=== PATIENT | female | born 1985 | race Two or more races ===

== ENCOUNTER → 2016-11-20 | Outpatient (CLI) | payer OTHER ==
--- NOTE | 2016-11-20 13:28 | REP ---
LEFT KNEE, FIVE VIEWS: HISTORY: Injury. There is no acute fracture or dislocation. The joint spaces are normal in appearance. IMPRESSION: There is no acute fracture or dislocation. Signed by Haresh Fortune MD 11/20/2016 01:47 P
--- NOTE | 2016-11-20 13:28 | REP ---
LEFT ANKLE, FOUR VIEWS: HISTORY: Injury. There is no acute fracture or dislocation. The joint space is normal in appearance. Soft tissue swelling is present over the lateral malleolus. IMPRESSION: There is no acute fracture or dislocation. Signed by Haresh Fortune MD 11/20/2016 01:47 P
== END ==
LOC: M LRY 12:44
PROVIDERS: ATTEND Nurse Practitioner Family
DX: S89.92XA Unspecified injury of left lower leg, initial encounter (principal); W18.30XA Fall on same level, unspecified, initial encounter; Y92.009 Unspecified place in unspecified non-institutional (private) residence as the place of occurrence of the external cause